=== PATIENT | male | born 1975 | race African-American/Black ===

== ENCOUNTER 2017-09-28 15:53 | Emergency (ER) | payer BC, SELFPAY | END 2017-09-28 16:50 | disposition home or self-care (01) | LOC: ERS 15:53 | DX: F10.129 Alcohol abuse with intoxication, unspecified (principal); I10 Essential (primary) hypertension; E78.5 Hyperlipidemia, unspecified; Z71.6 Tobacco abuse counseling; F17.290 Nicotine dependence, other tobacco product, uncomplicated | CPT/HCPCS: 96360; 99406 ==

== ENCOUNTER 2018-03-03 07:37 | Emergency (ER) | payer SELFPAY ==
[2018-03-03] MEDS ORDERED: Nitroglycerin 0.4 MG TAB (25 Tab Bottle) ONE (09:03)
[2018-03-03 09:29] LABS: ALT (SGPT) 91 U/L (8-55); AST (SGOT) 177 U/L (5-34); Albumin 4.9 g/dL (3.5-5.0); Alkaline Phosphatase 43 U/L (40-150); Anion Gap 20 mmol/L (10-20); BUN (Urea Nitrogen) 11 mg/dL (8.9-20.6); Bilirubin, Total 2.2 mg/dL (0.2-1.2); CK (CPK) 257 U/L (30-200); Calc. Creatinine Clearance 0 mL/min (70-130); Calcium 9.9 mg/dL (7.8-10.44); Carbon Dioxide 31 mmol/L (22-29); Chloride 94 mmol/L (98-107); Estimated GFR-MDRD Greater than 90; Globulin 3.1 g/dL (2.4-3.5); Glucose 73 mg/dL (70-105); Lipase 48 U/L (8-78); Potassium 3.3 mmol/L (3.5-5.1); Sodium 142 mmol/L (136-145)
[2018-03-03 09:32] LABS: Alcohol 429 mg/dL (Less than 10); CKMB 2.6 ng/mL (0-6.6)
[2018-03-03 09:34] LABS: #Basophils 0.1 thou/uL (0.0-0.2); #Lymphocytes 1.3 thou/uL (1.20-3.40); #Monocytes 0.3 thou/uL (0.11-0.59); #Neutrophils 1.2 thou/uL (1.40-6.50); %Basophils 2.1 % (0.0-1.0); %Eosinophils 0.5 % (0.0-10.0); %Lymphocytes 44.9 % (21.0-51.0); %Monocytes 10.4 % (0.0-10.0); %Neutrophils 42.1 % (42.0-75.0); Hemoglobin 14.1 g/dL (14.0-18.0); MDiff Complete? YES; Mean Corpuscular HGB CONC 35.2 g/dL (32.0-36.0); Mean Corpuscular Hemoglobin 34.6 pg (27.0-31.0); Mean Corpuscular Volume 98.5 fl (80.0-94.0); Mean Platelet Volume 7.1 fL (7.4-10.4); PLT Morphology Comment Appears Decreased; Platelet Count 106 thou/uL (130-400); Polychromasia SLIGHT = 2-3 cells (100X) (0-2/hpf); RBC Distribution Width 14.4 % (11.5-14.5); Red Blood Cell (RBC) Count 4.06 mill/uL (4.70-6.10); White Blood Cell (WBC) Count 2.9 thou/uL (4.8-10.8)
--- NOTE | 2018-03-03 10:12 | RAD ---
PORTABLE CHEST: Date: 03/03/18 HISTORY: Chest pain. FINDINGS: Heart size is borderline. Mediastinal structures appear unremarkable. Lungs are clear of infiltrates. IMPRESSION: Borderline heart size. POS: [facility]
== END 2018-03-03 14:33 | disposition home or self-care (01) ==
LOC: ERS 07:37
DX: F10.129 Alcohol abuse with intoxication, unspecified (principal); R07.89 Other chest pain; E78.5 Hyperlipidemia, unspecified; I10 Essential (primary) hypertension; F17.210 Nicotine dependence, cigarettes, uncomplicated
CPT/HCPCS: 36415; 71045; 80053; 80307; 82553; 83690; 84484; 85025; 85379; 93005; 94760; 96360; 96361

== ENCOUNTER 2018-06-14 13:50 | Emergency (ER) | payer SELFPAY ==
[2018-06-14 14:56] LABS: #Lymphocytes 0.8 thou/uL (1.20-3.40); #Monocytes 0.2 thou/uL (0.11-0.59); #Neutrophils 1.9 thou/uL (1.40-6.50); %Eosinophils 0.2 % (0.0-10.0); %Lymphocytes 27.8 % (21.0-51.0); %Monocytes 6.7 % (0.0-10.0); %Neutrophils 65.3 % (42.0-75.0); Mean Corpuscular HGB CONC 35.3 g/dL (32.0-36.0); Mean Corpuscular Hemoglobin 35.3 pg (27.0-31.0); Mean Corpuscular Volume 99.8 fL (78.0-98.0); Platelet Count 140 thou/uL (130-400); RBC Distribution Width 15.7 % (11.5-14.5); Red Blood Cell (RBC) Count 4.27 mill/uL (4.70-6.10); White Blood Cell (WBC) Count 2.9 thou/uL (4.8-10.8)
[2018-06-14 15:18] LABS: ALT (SGPT) 36 U/L (8-55); AST (SGOT) 94 U/L (5-34); Albumin 4.1 g/dL (3.5-5.0); Alkaline Phosphatase 60 U/L (40-150); Anion Gap 29 mmol/L (10-20); BUN (Urea Nitrogen) 10 mg/dL (8.9-20.6); Bilirubin, Total 1.4 mg/dL (0.2-1.2); CK (CPK) 147 U/L (30-200); Calc. Creatinine Clearance 0 mL/min (70-130); Calcium 8.5 mg/dL (7.8-10.44); Carbon Dioxide 17 mmol/L (22-29); Chloride 96 mmol/L (98-107); Estimated GFR-MDRD 87; Potassium 3.1 mmol/L (3.5-5.1); Protein, Total 7.1 g/dL (6.0-8.3); Sodium 139 mmol/L (136-145)
[2018-06-14 15:21] LABS: Glucose 57 mg/dL (70-105)
[2018-06-14] MEDS ORDERED: Dextrose 50% Abboject 50 ML SYRINGE ONE (15:38)
--- NOTE | 2018-06-14 16:20 | RAD ---
RIGHT HIP TWO VIEW: 06/14/18 HISTORY: Seizure. COMPARISON: None. 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 Large circumferential osteophytes. Narrowing of the rig ht hip joint. Right SI joint is unremarkable. IMPRESSION: No acute displaced fracture. POS: [facility]
--- NOTE | 2018-06-14 16:20 | RAD ---
THREE VIEWS OF THE RIGHT SHOULDER 06/14/18 INDICATION: History of seizure with right shoulder pain. FINDINGS: No acute fracture or subluxation is evident. AC joint and glenohumeral alignment appear within normal limits. The visualized right lung is clear. IMPRESSION: No acute osseous abnormality. POS: [facility]
[2018-06-14] MEDS ORDERED: Potassium Chloride 20 MEQ TAB ONE (17:05)
[2018-06-14] MEDS ORDERED: Magnesium Sulfate 2 GM/100 ML BAG ONE (17:05)
== END 2018-06-14 18:47 | disposition home or self-care (01) ==
LOC: ERS 13:50
DX: R56.9 Unspecified convulsions (principal); E16.2 Hypoglycemia, unspecified; E87.6 Hypokalemia; E83.42 Hypomagnesemia; I10 Essential (primary) hypertension; E78.5 Hyperlipidemia, unspecified; F17.290 Nicotine dependence, other tobacco product, uncomplicated
CPT/HCPCS: 36415; 36416; 80053; 82550; 83735; 84146; 85025; 93005; 94760; 96365; 96375; J3475